=== PATIENT | female | born 1960 | race Caucasian/White ===

== ENCOUNTER → 2017-03-17 | Day surgery (SDC) | payer OTHER ==
[~2017-03-17] MED LIST: ALEN1TAB48 PO; ASCO500T PO; ASPI-516 CHEW; BUPIVACAINE HCL PF 0.75% 30 ML VIAL ONE; CALC600T PO; D-20TAB3 PO; DICL75TA PO; ESTR0.4T PO; GLUC500T4 PO; HYDR-3580 PO; MAGN400T2 PO; MULTTAB67 PO; OMEG100046 PO; OMEP20TA93 PO; PROPOFOL 200 MG/20 ML AMP IV ONE; RIBO100T2 PO; TRIAMCINOLONE ACETONIDE 40 MG/ML VIAL I-ARTICULR ONE; VESI5TAB2 PO; XARE10TA PO
--- NOTE | 2017-03-17 10:43 | M6 ---
cc: GHASSAN MURPHY M.D. DATE: 03/07/2017 DATE OF : 1960 PROCEDURE Fluoroscopically guided injection right L5-S1 facet joint. PROCEDURE NOTE History and physical was completed and signed. Consent was signed. Procedure site was marked. Medications were listed and reconciled. Pain score was recorded. Allergies were noted. Timeout was taken. Fluoroscopy time was recorded where applicable. Sedation was administered or directed by Dr. Murphy. The patient was given oxygen. The patient was monitored by a registered nurse. Total procedure time was greater than 15 minutes. An IV was started, blood pressure cuff, pulse oximeter and EKG were applied. The patient was placed in the prone position on a Kei table, sedated with small amounts of propofol titrated to effect. Vital signs were monitored and remained stable throughout the procedure. The sacral area was prepped with alcohol and 10% Betadine solution, draped with sterile drapes. Fluoroscopy was used in a César dog view to clearly visualize the right L5-S1 joint. A sterile 3-1/2 inch, 25-gauge needle was advanced into the joint under fluoroscopic guidance. There was negative aspiration for blood or any other type of fluid and the patient was given 1 mL of Marcaine 0.75% which contained 10 mg of Kenalog. Following the procedure the patient was taken to the recovery room with stable vital signs, neurologically intact. She will be evaluated immediately and with follow-up to determine if she has a subjective decrease in her usual pain and a corresponding objective increase in her functional capabilities. W. Ken Murphy MD [facility] /9:14 AM /10:44 AM
== END | disposition home or self-care (01) ==
LOC: PHSDC 07:23
PROVIDERS: ATTEND Pain Medicine Interventional Pain Medicine
DX: M54.5 Low back pain (principal)
CPT/HCPCS: 64493; 99152; J3301

== ENCOUNTER → 2017-04-01 | Day surgery (SDC) | payer OTHER ==
[~2017-04-01] MED LIST changes: +BUPIVACAINE HCL PF 0.5% 30 ML VIAL ONE; -BUPIVACAINE HCL PF 0.75% 30 ML VIAL ONE; -DICL75TA PO; -HYDR-3580 PO; +MEDR5TAB3 PO; -XARE10TA PO; +methylPREDNISolone ACETATE 40 MG/ML VIAL I-ARTICULR ONE
--- NOTE | 2017-04-01 09:14 | M6 ---
cc: GHASSAN MURPHY M.D. DATE: 04/01/2017 DATE OF : 1960 PROCEDURE Fluoroscopically guided injection right sacroiliac joint. PROCEDURE NOTE History and physical was completed and signed. Consent was signed. Procedure site was marked. Medications were listed and reconciled. Pain score was recorded. Allergies were noted. Timeout was taken. Fluoroscopy time was recorded where applicable. Sedation was administered or directed by Dr. Murphy. The patient was given oxygen. The patient was monitored by a registered nurse. Total procedure time was greater than 15 minutes. An IV was started, blood pressure cuff, pulse oximeter and EKG were applied. The patient was placed in the prone position on a Kei table, sedated with small amounts of propofol titrated to effect. Vital signs were monitored and remained stable throughout the procedure. The lumbar and sacral area was prepped with alcohol and 10% Betadine solution, draped with sterile drapes. Fluoroscopy was used shooting from medial to lateral to clearly visualize the posterior joint line of the right sacroiliac joint. Separate sterile 5-inch, 22-gauge spinal needles were advanced into these joints under fluoroscopic guidance. There was negative aspiration for blood or any other type of fluid and the patient was given 2 mL of 0.5% Marcaine, 20 mg of Depo-Medrol, 20 mg of Kenalog in the right sacroiliac joint. Following this she was taken to the recovery room with stable vital signs, neurologically intact. She will be evaluated immediately and with follow-up to determine if she has a subjective decrease in her usual pain and a corresponding objective increase in her functional capabilities. W. Ken Murphy MD [facility] /8:50 AM /9:05 AM
== END | disposition home or self-care (01) ==
LOC: PHSDC 08:06
PROVIDERS: ATTEND Pain Medicine Interventional Pain Medicine
DX: M54.5 Low back pain (principal); R25.9 Unspecified abnormal involuntary movements
CPT/HCPCS: 99152; G0260; J1030; J3301; 27096

== ENCOUNTER → 2017-05-07 | Day surgery (SDC) | payer OTHER ==
[~2017-05-07] MED LIST changes: -BUPIVACAINE HCL PF 0.5% 30 ML VIAL ONE; -GLUC500T4 PO; +LIDOCAINE HCL 1% PF 30 ML VIAL INFIL ONE; +LIOR0.05 INTRACATH; +MEPERIDINE HCL 25 MG/ML VIAL IV ONE; +MIDAZOLAM HCL 2 MG/2 ML VIAL IV ONE; +SODIUM CHLORIDE 0.9% 10 ML VIAL ONE; -TRIAMCINOLONE ACETONIDE 40 MG/ML VIAL I-ARTICULR ONE
--- NOTE | 2017-05-07 08:41 | M6 ---
cc: Alejandro MURPHY DATE 05/07/2017 DATE OF 1960 PROCEDURE Radiofrequency ablation sensory branches to the right sacroiliac joint, (right L5, S1, S2 and S3). PROCEDURE NOTE History and physical was completed and signed. Consent was signed. Procedure site was marked. Medications were listed and reconciled. Pain score was recorded. Allergies were noted. Time out was taken. Fluoroscopy time was recorded where applicable. Sedation was administered or directed by Dr. Murphy. The patient was given oxygen. The patient was monitored by a registered nurse. Total procedure time was greater than 15 minutes. IV was started, blood pressure cuff, pulse oximeter and EKG were applied. The patient was placed in the prone position on a Kei table, sedated with small amounts of propofol, Demerol and Versed titrated to effect. Vital signs were monitored and remained stable throughout the procedure. The sacral area was prepped with alcohol and 10% Betadine solution and draped with sterile drapes. Fluoroscopy was used to visualize the right sacral ala, the right S1, S2 and S3 neural foramen. The skin was infiltrated with 1% Xylocaine using a 27 gauge needle. Then introducer needles were placed at the right sacral ala and then just lateral to the S1, S2, and S3 neural foramen. Fluoroscopy was used to confirm the introducer needles were in the proper position. Thermal lesions were made at the right sacral ala and then at the cephalad and caudal border of S1, S2 and S3. Following the injections, a with small amount of Depo-Medrol was injected at the lesion sites for a total of 40 mg of Depo-Medrol. Following this the patient was taken to the recovery room with stable vital signs neurologically intact. MD RAFAEL Sherwood/[facility]IC /8:17 AM 8:23 AM
== END | disposition home or self-care (01) ==
LOC: PHSDC 06:32
PROVIDERS: ATTEND Pain Medicine Interventional Pain Medicine
DX: M54.5 Low back pain (principal)
CPT/HCPCS: 64635; 64640; 99152; 99153; J1030; J2175; J2250